=== PATIENT | female | born 1950 | race Caucasian/White ===

== ENCOUNTER 2017-08-01 14:26 | Emergency (ER) | payer MEDICARE, OTHER ==
[2017-08-01] MEDS ORDERED: Bacitracin Zinc 1 Packet ONE (15:40)
[2017-08-01] MEDS ORDERED: Cephalexin 250 MG CAP ONE (15:53)
[2017-08-01] MEDS ORDERED: HYDROcodone/Acetaminophen 5/325 mg Tablet ONE (15:53)
== END 2017-08-01 16:00 | disposition home or self-care (01) ==
LOC: BURERS 14:26
DX: S61.216A Laceration without foreign body of right little finger without damage to nail, initial encounter (principal); E78.5 Hyperlipidemia, unspecified; I10 Essential (primary) hypertension; Z79.82 Long term (current) use of aspirin; W26.0XXA Contact with knife, initial encounter; Y92.009 Unspecified place in unspecified non-institutional (private) residence as the place of occurrence of the external cause
CPT/HCPCS: 12002; 90471

== ENCOUNTER 2017-08-09 13:57 | Emergency (ER) | payer MEDICARE | END 2017-08-09 14:15 | disposition home or self-care (01) | LOC: BURERS 13:57 | DX: S61.217D Laceration without foreign body of left little finger without damage to nail, subsequent encounter (principal); E78.5 Hyperlipidemia, unspecified; I10 Essential (primary) hypertension; Z79.2 Long term (current) use of antibiotics; X58.XXXD Exposure to other specified factors, subsequent encounter ==

== ENCOUNTER 2017-08-31 08:44 | Emergency (ER) | payer MEDICARE ==
[2017-08-31] MEDS ORDERED: AMOXicillin 250 MG CAP ONE (09:08)
[2017-08-31] MEDS ORDERED: Dexamethasone 4 mg/ml Vial ONE (09:08)
== END 2017-08-31 09:15 | disposition home or self-care (01) ==
LOC: BURERS 08:44
DX: J20.9 Acute bronchitis, unspecified (principal); E78.5 Hyperlipidemia, unspecified; I10 Essential (primary) hypertension; F32.9 Major depressive disorder, single episode, unspecified; Z79.82 Long term (current) use of aspirin
CPT/HCPCS: 99283; J1100